=== PATIENT | male | born 1990 | race Caucasian/White ===

== ENCOUNTER 2023-05-15 00:47 | Emergency (ER) | payer OTHER ==
[~2023-05-15] VITALS: Ht 167.6 cm; Wt 87.7 kg
[2023-05-15] MEDS ORDERED: LIDOCAINE 5% (LIDODERM) PATCH TD ONE (02:15)
[2023-05-15] MEDS ORDERED: MORPHINE 4 MG/ML 1ML VIAL IM ONE (02:15)
[2023-05-15] MEDS ORDERED: PERCOCET 5MG/325MG TAB PO ONE ×2 (02:15→06:10)
[2023-05-15] MEDS ORDERED: ISOVUE-370 76% 100ML VIAL As Ordered ONE (04:02)
[2023-05-15] MEDS ORDERED: OXYC1TAB23 PO (06:00)
[2023-05-15] MEDS ORDERED: LIDO5DIS41 TD (06:00)
[2023-05-15 06:31] VITALS: BP 118/70; TEMP 99; O2SAT 97
== END 2023-05-15 06:33 | disposition home or self-care (01) ==
LOC: M ED 00:47
DX: S20.214A Contusion of middle front wall of thorax, initial encounter (principal); S82.452A Displaced comminuted fracture of shaft of left fibula, initial encounter for closed fracture; S22.41XA Multiple fractures of ribs, right side, initial encounter for closed fracture; S27.321A Contusion of lung, unilateral, initial encounter; F10.10 Alcohol abuse, uncomplicated; W10.8XXA Fall (on) (from) other stairs and steps, initial encounter; Z79.899 Other long term (current) drug therapy
CPT/HCPCS: 71046; 71100; 71275; 73590; 80047; 94010; 96372; 99284; Q9967